=== PATIENT | male | born 1970 | race Two or more races ===

== ENCOUNTER 2018-07-27 11:10 | Emergency (ER) | payer OTHER ==
[~2018-07-27] VITALS: Ht 160 cm; Wt 63.3 kg
[2018-07-27] MEDS ORDERED: GABA-827 PO (11:38)
--- NOTE | 2018-07-27 11:38 | NUR ---
PATIENT PRESENTS TO ED TODAY FOR ABD PAIN N/V/D STARTING THIS AM AT 0900. SPOUSE AT BEDSIDE, URINAL PROVIDED TO PATIENT FOR UA. AWAITING MD ORDERS, CALL LIGHT WITHIN REACH. DENIES CP.
[2018-07-27] MEDS ORDERED: FAMOTIDINE 20 MG/2 ML ONE (11:52)
[2018-07-27] MEDS ORDERED: ONDANSETRON 2MG/ML, 2ML ONE (11:52)
[2018-07-27 11:58] LABS: BASOPHILS # (AUTO) 0.01 x10^3/uL (0-0.1); BASOPHILS % (AUTO) 0 % (0-1); EOSINOPHILS # (AUTO) 0.02 x10^3/uL (0-0.4); EOSINOPHILS % (AUTO) 0 % (1-7); LYMPHOCYTES % (AUTO) 7 % (22-44); MD NO; MEAN CORPUSCULAR HEMOGLOBIN 29.2 pg (27.5-34.5); MEAN CORPUSCULAR HGB CONC 33.3 g/dL (33.2-36.2); MEAN CORPUSCULAR VOLUME 87.5 fL (81-97); MEAN PLATELET VOLUME 7.4 fL (7.4-10.4); MONOCYTES # (AUTO) 0.21 x10^3/uL (0.2-0.8); MONOCYTES % (AUTO) 3 % (2-9); NEUTROPHILS # (AUTO) 7.41 x10^3/uL (1.8-6.8); NEUTROPHILS % (AUTO) 90 % (42-75); PLATELET COUNT 291 x10^3/uL (130-400); RED CELL DISTRIBUTION WIDTH 13.7 % (9.4-14.8)
[2018-07-27] MEDS ORDERED: ONDANSETRON 2MG/ML, 2ML IVPush ONE (12:00)
[2018-07-27] MEDS ORDERED: SODIUM CHLORIDE FLUSH 10ML SYR IVF ONE (12:00)
[2018-07-27] MEDS ORDERED: FAMOTIDINE 20 MG/2 ML IVP ONE (12:00)
[2018-07-27 12:08] LABS: ALANINE AMINOTRANSFERASE 86 U/L (12-78); ALBUMIN 4.2 g/dL (3.4-5.0); ANION GAP 5 mmol/L (5-15); CHLORIDE 107 mmol/L (98-107); CREATININE 0.96 mg/dL (0.7-1.3)
[2018-07-27 12:12] LABS: ALKALINE PHOSPHATASE 108 U/L (45-117); BILIRUBIN,TOTAL 0.7 mg/dL (0.2-1.0); TOTAL PROTEIN 8.6 g/dL (6.4-8.2); TROPONIN I < 0.015 ng/mL (0.000-0.045)
--- NOTE | 2018-07-27 12:14 | NUR ---
UA COLLECTED AND GIVEN TO PHARMACEUTICAL SCIENTIST.
--- NOTE | 2018-07-27 13:07 | NUR ---
RECEIVED REPORT FROM JUDE SUÁREZ. [facility] NADN. RICE.
[2018-07-27 13:19] LABS: MICROSCOPIC AUTO
[2018-07-27 13:31] LABS: CULTURE INDICATED? NO
[2018-07-27 14:13] VITALS: BP 122/84
--- NOTE | 2018-07-27 14:13 | NUR ---
PT RESTING ON GURNEY. NADN. RICE.
== END 2018-07-27 15:00 | disposition home or self-care (01) ==
LOC: ED 14:54
DX: K29.00 Acute gastritis without bleeding (principal)
CPT/HCPCS: 36415; 74022; 76700; 80053; 81001; 83690; 84484; 85025; 93005; 96374; 96375; 99284; J2405; J3490